=== PATIENT | male | born 1980 | race Caucasian/White ===

== ENCOUNTER → 2016-10-27 | Outpatient (CLI) | payer BC ==
--- NOTE | 2016-10-27 10:25 | RAD ---
EXAM DESCRIPTION: Shoulder,Right 2 or More Views CLINICAL HISTORY: 36 years, Male, PAIN IN RIGHT SHOULDER COMPARISON: FINDINGS: Four views obtained without fracture or dislocation. Some mild acromioclavicular degenerative change. IMPRESSION: No fracture or dislocation. Mild acromioclavicular degenerative change Electronically signed by: Brice Duenas MD 10/27/2016 10:24 AM CDT
== END | disposition home or self-care (01) ==
LOC: RAD 08:02
PROVIDERS: ATTEND Orthopaedic Surgery
DX: M25.511 Pain in right shoulder (principal)

== ENCOUNTER → 2017-04-20 | Outpatient (CLI) | payer BC | LOC: GMAL 10:41 | PROVIDERS: ATTEND Family Medicine | DX: Z00.00 Encounter for general adult medical examination without abnormal findings (principal) ==

== ENCOUNTER → 2018-06-07 | Outpatient (CLI) | payer BC, OTHER ==
--- NOTE | 2018-06-07 14:11 | RAD ---
EXAM DESCRIPTION: Shoulder,Right 2 or More Views CLINICAL HISTORY: PAIN IN RIGHT SHOULDER COMPARISON: None Available. TECHNIQUE: Four views of the right shoulder. FINDINGS: There is adequate internal and external rotation. There is no fracture or dislocation. There is degenerative narrowing of the right AC joint. No focal bone lesion. IMPRESSION: Negative for fracture or dislocation. Electronically signed by: Jayden Coles MD 06/07/2018 2:08 PM CDT
== END ==
LOC: RAD 10:34
PROVIDERS: ATTEND Orthopaedic Surgery
DX: M25.511 Pain in right shoulder (principal)

== ENCOUNTER → 2018-12-09 | Outpatient (CLI) | payer BC, OTHER ==
--- NOTE | 2018-12-09 12:47 | RAD ---
EXAM DESCRIPTION: Forearm,Left CLINICAL HISTORY: 38 years Male, FOREARM PAIN COMPARISON: None. FINDINGS: Left radius and ulna appear intact. No fracture or dislocation. Normal bony mineralization. No displacement of distal humeral fat pads. Radial head and capitellum are normally aligned on both views. IMPRESSION: Negative for fracture. Electronically signed by: Jayden Coles MD 12/09/2018 12:45 PM CDT
--- NOTE | 2018-12-09 12:48 | RAD ---
EXAM DESCRIPTION: Elbow,Left 3 x-ray Views CLINICAL HISTORY: ELBOW PAIN COMPARISON: None Available. TECHNIQUE: AP, Lateral, and Oblique FINDINGS: Three-view left elbow shows no fracture or dislocation. No displacement of distal humeral fat pads. Minimal spurring at the olecranon. There is no bone lesion. IMPRESSION: Negative for fracture. Electronically signed by: Jayden Coles MD 12/09/2018 12:46 PM CDT
== END ==
LOC: RAD 11:32
PROVIDERS: ATTEND Orthopaedic Surgery
DX: M25.522 Pain in left elbow (principal); M79.632 Pain in left forearm

== ENCOUNTER → 2019-08-18 | Outpatient (CLI) | payer BC, OTHER ==
--- NOTE | 2019-08-18 14:19 | RAD ---
EXAM DESCRIPTION: Elbow x-ray,Left 3 Views CLINICAL HISTORY: PAIN COMPARISON: None Available. TECHNIQUE: AP, Lateral, and Oblique x-ray views left elbow FINDINGS: Three-view left elbow shows no fracture or dislocation. There is no bone lesion. There are no significant arthritic changes. There is no radiopaque foreign body. IMPRESSION: Negative for fracture or dislocation. Electronically signed by: Jayden Coles MD 08/18/2019 2:18 PM CDT
--- NOTE | 2019-08-18 14:21 | RAD ---
EXAM DESCRIPTION: Shoulder x-ray Right 4 Views CLINICAL HISTORY: PAIN COMPARISON: None Available. TECHNIQUE: Four x-ray views of the right shoulder. FINDINGS: There is adequate internal and external rotation. Normal alignment on transcatheter Y view. Normal glenohumeral alignment on transaxillary view. Linear density posterior to the acromion probably in the soft tissues. No donor site to suggest an avulsion fracture. There is no fracture or dislocation. Mild degenerative narrowing of the AC joint with superior spurring. No focal bone lesion. IMPRESSION: Negative for fracture or dislocation. Electronically signed by: Jayden Coles MD 08/18/2019 2:19 PM CDT
--- NOTE | 2019-08-18 14:22 | RAD ---
EXAM DESCRIPTION: Shoulder x-ray,Left 4 Views CLINICAL HISTORY: PAIN COMPARISON: None Available. TECHNIQUE: Four x-ray views of the left shoulder. FINDINGS: There is adequate internal and external rotation. There is no fracture or dislocation. Slight offset at the AC joint may be old injury or degenerative laxity of the acromioclavicular ligament. No edema in the area to suggest acute injury. No focal bone lesion. IMPRESSION: Negative for fracture or dislocation. Electronically signed by: Jayden Coles MD 08/18/2019 2:21 PM CDT
--- NOTE | 2019-08-18 14:24 | RAD ---
EXAM DESCRIPTION: Elbow x-ray,Right 3 Views CLINICAL HISTORY: PAIN COMPARISON: None Available. TECHNIQUE: AP, Lateral, and Oblique x-ray views right elbow FINDINGS: Three-view right elbow shows no fracture or dislocation. Mild degenerative spurring at the medial and lateral aspects of the elbow joint. There is no bone lesion. Slight deformity of the radial head consistent with old healed fracture. No acute fracture of the elbow. No displacement of the distal humeral fat pads. IMPRESSION: No acute fracture or dislocation. Degenerative changes as described. Electronically signed by: Jayden Coles MD 08/18/2019 2:22 PM CDT
== END ==
LOC: RAD 07:41
PROVIDERS: ATTEND Orthopaedic Surgery
DX: M19.021 Primary osteoarthritis, right elbow (principal); M25.522 Pain in left elbow; M25.511 Pain in right shoulder; M25.512 Pain in left shoulder

== ENCOUNTER → 2019-08-23 | Outpatient (CLI) | payer BC, OTHER ==
--- NOTE | 2019-08-24 07:31 | MRI ---
Study: MRI of the Right Shoulder. Indication: ROTATOR CUFF SYNDROME RIGHT Technique: Multiplanar, multi sequence MRI of the right shoulder was obtained without intravenous contrast. Comparison: None. Findings: Severe AC joint osteoarthritis with reactive marrow edema distal clavicular head and acromion. Small joint effusion. Type II acromion. Trace subacromial/subdeltoid bursal fluid. High-grade supraspinatus and infraspinatus tendinosis with scattered bursal fraying and interstitial fissuring of both tendons. Subscapularis tendinosis. Rotator cuff musculature normal without atrophy, fatty infiltration, or intramuscular edema. Intracapsular long head biceps tendinosis. Circumferential labral truncation and degeneration with high-grade tearing superiorly and inferiorly. Tiny joint effusion. No acute fracture or advanced glenohumeral osteoarthritis. Impression: High-grade supraspinatus and infraspinatus tendinosis with scattered bursal surface fraying and interstitial fissuring of both tendons. Subscapularis tendinosis. Intracapsular long head biceps tendinosis. Circumferential labral truncation and degeneration with high-grade tearing superiorly and inferiorly. Tiny glenohumeral joint effusion. Severe AC joint osteoarthritis. Electronically signed by: Grant Fernandes MD 08/24/2019 7:30 AM CDT
== END ==
LOC: MRI 08:35
PROVIDERS: ATTEND Orthopaedic Surgery
DX: M75.101 Unspecified rotator cuff tear or rupture of right shoulder, not specified as traumatic (principal); M25.411 Effusion, right shoulder; M75.21 Bicipital tendinitis, right shoulder; S43.431A Superior glenoid labrum lesion of right shoulder, initial encounter; M19.011 Primary osteoarthritis, right shoulder

== ENCOUNTER → 2019-09-20 | Outpatient (CLI) | payer BC, OTHER | LOC: LAB.O 12:38 | PROVIDERS: ATTEND Orthopaedic Surgery | DX: Z01.818 Encounter for other preprocedural examination (principal) ==

== ENCOUNTER 2019-10-05 05:46 | Day surgery (SDC) | payer BC, OTHER ==
[2019-10-05] MEDS ORDERED: SODIUM CHL 0.9% 100ML MINI-BAG 100 ML IVPB ONE (06:46)
[2019-10-05] MEDS ORDERED: LACTATED RINGERS 1,000 ML ONE (06:46)
[2019-10-05] MEDS ORDERED: ceFAZolin SODIUM 1 GM VIAL ONE (06:46)
[2019-10-05] MEDS ORDERED: ePHEDrine SULF 50 MG/ML ONE (07:00)
[2019-10-05] MEDS ORDERED: PROPOFOL 200 MG/20 ML VIAL IV ONE (07:00)
[2019-10-05] MEDS ORDERED: DEXAMETHASONE INJ 10 MG/ML VIAL ONE (07:00)
[2019-10-05] MEDS ORDERED: METOCLOPRAMIDE HCL INJ 10 MG/2 ML VIAL ONE (07:00)
[2019-10-05] MEDS ORDERED: ROCURONIUM BROMIDE 10 MG/ML VIAL ONE ×2 (08:17→09:02)
[2019-10-05] MEDS ORDERED: fentaNYL CITRATE INJ 50 MCG/ML AMP ONE (08:18)
[2019-10-05] MEDS ORDERED: MIDAZOLAM INJ 2 MG/2 ML VIAL ONE (08:18)
[2019-10-05] MEDS ORDERED: BUPIVACAINE 0.5% 30 ML VIAL INJ ONE (08:20)
[2019-10-05] MEDS ORDERED: LACTATED RINGERS 1,000 ML IVS ONE (08:50)
[2019-10-05] MEDS ORDERED: BUPIVACAINE LIPOSOME 13.3 MG/ML VIAL INJ ONE (09:03)
[2019-10-05] MEDS: VANCOMYCIN HCL INJ 1,000 MG VIAL IVPB ONE ×2 (10:15→10:28)
[2019-10-05] MEDS: ceFAZolin SODIUM 1 GM VIAL ONE ×2 (10:15→10:28)
[2019-10-05] MEDS: BUPIVACAINE 0.5% 30 ML VIAL INJ ONE ×2 (10:15→10:25)
[2019-10-05] MEDS: BUPIVACAINE LIPOSOME 13.3 MG/ML VIAL INJ ONE ×2 (10:15→10:25)
[2019-10-05] MEDS ORDERED: HYDROcodone 5MG/APAP 325MG 1 EA TAB ONE (11:34)
[2019-10-05] MEDS ORDERED: HYDROcodone 5MG/APAP 325MG 1 EA TAB PO ONE (11:35)
[2019-10-05] MEDS ORDERED: SODIUM CHLORIDE 0.9% (FLUSH) 10 ML SYG ONE (12:46)
[2019-10-05 13:17] VITALS: BP 137/93; TEMP 96.7; O2SAT 96
--- NOTE | 2019-10-06 13:14 | OP ---
DATE OF PROCEDURE: 10/05/19 PREOPERATIVE DIAGNOSIS: 1. Acromioclavicular arthritis with impingement. POSTOPERATIVE DIAGNOSIS: 1. Acromioclavicular arthritis with impingement. PROCEDURE: 1. Resection of the acromioclavicular joint and osteophytes. SURGEON: Balta Duran MD. GATE CLERK: Bijan Gr CST, -C. ANESTHESIA: General anesthesia. COMPLICATIONS: None. FINDINGS: Severe arthritis of the acromioclavicular joint with underlying osteophytes as well as cystic changes in the distal clavicle. INDICATION: Mr. Contreras has a history of pain in the area of the acromioclavicular joint. He has had multiple injections into the area for both therapeutic and diagnostic purposes. We have discussed his options and at this point, he chose to undergo the above procedure. After discussing the risks, benefits and alternatives to that, the patient has given informed consent for that. PROCEDURE: The patient was brought to the Operating Room and placed in the supine position. General anesthesia was induced and the patient was transitioned into the beach chair position. The arm and shoulder were then sterilely prepped and draped. An incision was made at the area just lateral to the acromioclavicular joint. Full thickness skin flaps were developed and the acromioclavicular joint was identified. After identification, the periosteum was elevated. The distal approximately 1 cm of the clavicle was resected. After resection, care was taken to ensure complete removal of all the bony debris. The wound was again irrigated. A split was made in the deltoid. Bursectomy was performed and the cuff was identified and examined. There was no defect noted in the cuff. The wound was then very thoroughly irrigated and the periosteum was reapproximated over the remaining defect. The skin was closed with a combination of running and interrupted subcuticular stitches. Sterile dressing was placed. The patient was placed in a sling, awoken from anesthesia and taken to Recovery. POSTOPERATIVE PLAN: He will remain in the sling until followup with us in about two days. We will begin early range of motion passively. #[id number] [facility]
== END 2019-10-05 12:05 | disposition home or self-care (01) ==
LOC: AMB 05:46
PROVIDERS: ATTEND Orthopaedic Surgery
DX: M19.011 Primary osteoarthritis, right shoulder (principal); M75.41 Impingement syndrome of right shoulder; M25.711 Osteophyte, right shoulder; M77.12 Lateral epicondylitis, left elbow; F17.220 Nicotine dependence, chewing tobacco, uncomplicated
CPT/HCPCS: 00450; 23120; 36415; 80048; 80307; 81001; 85025; 93005; A4216; J0690; J1100; J2250; J2765; J3010; J3370; J3490; J7050; J7120